=== PATIENT | male | born 1985 | race Caucasian/White ===

== ENCOUNTER 2025-05-22 08:33 | Outpatient (CLI) | payer BC, SELFPAY ==
--- OUTSIDE RECORDS SUMMARY | 2025-05-22 08:47 | XMS_ITS | Clinical Summary ---
Author Organization [facility] [employer] Address [address] [place] [address] Care Team Providers Care Brand Sales Consultant Name Role Phone Unavailable Primary Care Provider Unavailabl e Source Comments [facility] [employer],non-owned Affiliates and Associated Physician Practices is amultiple site organization consisting of ambulatory clinics and hospital sitesin [place], [place], [place] and [place]. This disclosure is being madepursuant to the Care Everywhere program and may not contain all information available regarding this patient. Last updated 18.IM[employer] Allergies No known active allergies Medications * This document contains information received from the source organization and may not represent a complete record from that organization. * Be aware that medications may not be up to date on this document. Alwaysverify current medications with the patient. terbinafine (LAMISIL) 250 MG tablet Take 250 mg by mouth once daily Active FLUoxetine (PROZAC) 20 MG capsuleIndicati ons:Depression Take 1 capsule by mouth once daily Reasons: Depression 30 capsule 2 9 Active nicotine (NICODERM CQ) 21 MG/24HR patchIndication s:Nicotine Dependence Apply 1 patch to skin once daily Remove old patch before applying new patch. Reasons: Nicotine Addiction 30 patch 9 Active Active Problems Problem Noted Date Diagnosed Date Suicide attempt by carbon monoxide poisoning Suicide attempt by drug ingestion 12/15/2018 Major depressive episode 12/14/2018 Social History Tobacco Use Types Packs/Day Years Used Date Smoking Tobacco: Every Day Cigarettes 1 22 Smokeless Tobacco: Never Tobacco Cessation:Ready to Q uit: No; Counseling Given: Yes Alcohol Use Standard Drinks/Week Comments No 0 (1 standard drink = 0.6 oz pur e alcohol) Sex and Gender Information Value Date Recorded Sex Assigned at Not on file Legal Sex Male 1:20 PM CDT Gender Identity Not on file Sexual Orientation Not on file Last Filed Vital Signs Vital Sign Reading Time Taken Comments Blood Pressure 114/77 12/17/2018 7:33 AM CDT Pulse 87 12/17/2018 7:33 AM CDT Temperature 37 C (98.6 F) 12/17/2018 7:33 AM CDT Respiratory Rate 18 12/17/2018 7:33 AM CDT Oxygen Saturation 95% 12/17/2018 7:33 AM CDT Inhaled Oxygen Concentration - - Weight 99.8 kg (220 lb) 12/14/2018 7:05 PM CDT Height 177.8 cm (5' 10) 12/14/2018 7:05 PM CDT Body Mass Index 31.57 12/14/2018 7:05 PM CDT Plan of Treatment Health Maintenance Due Date Last Done Comments LIPID TESTING 1983 HIV SCREENING 1998 HEPATITIS C SCREENING 01/21/2001 DTAP/TDAP/TD VACCINES (1 - Tdap) 2002 HEPATITIS B VACCINE (1 of 3 - 19+ 3-dose series) 2002 PNEUMOCOCCAL VACCINE (1 of 2 - PCV) 2002 HPV VACCINE (1 - 3-dose SCDM series) 2010 DEPRESSION SCREENING 06/27/2024 COVID-19 VACCINE (1 - 2024-2 6 season) 2025 INFLUENZA VACCINE (#1) 2025 ZOSTER VACCINE (1 of 2) 2033 HIB VACCINE Aged Out No longer eligi ble based on patient's age to complete this topic MENINGOCOCCAL (Group B) VACC INE SHARED DECISION-MAKING Aged Out No longer eligibl e based on patient's age to complete this topic MENINGOCOCCAL GROUPS A/C/Y/W VACCINE Aged Out No longer eligible b ased on patient's age to complete this topic Insurance CIG[employer] CIGNA Advance Directives * Full Code (Latest Code Status on File) Date Activated Date Inactivated Comments 12/14/2018 8:25 PM 12/17/2018 2:40 PM
--- NOTE | 2025-05-22 09:15 | NEURO_ITS ---
Impression: # Complains of hand grasp weakness and /hand numbness. ? # Mild left Carpal Tunnel Syndrome and mild left Ulnar Neuropathy. ? # Normal Needle/ EMG exam. Nerve Conduction Studies ?Stim Site NR Peak (ms) P-T Amp (?V) Site1 Site2 Delta-P (ms) Dist (cm) Mathew (m/s) Left Median Anti Sensory (2-3nd Digit) Wrist ? 3.4 31.3 Wrist 2-3nd Digit 3.4 14.0 41 Wrist ? 3.4 35.3 Wrist 2-3nd Digit 3.4 14.0 41 Left Radial Anti Sensory (Base 1st Digit) Wrist ? 2.0 6.6 Wrist Base 1st Digit 2.0 0.0 Left Ulnar Anti Sensory (5th Digit) Wrist ? 2.6 31.6 Wrist 5th Digit 2.6 14.0 54 ?Stim Site NR Onset (ms) O-P Amp (mV) Site1 Site2 Delta-0 (ms) Dist (cm) Mathew (m/s) Left Median Motor (Abd Poll Brev) Wrist ? 3.8 1.8 Elbow Wrist 4.6 29.0 63 Elbow ? 8.4 1.6 Left Ulnar Motor (Abd Dig Minimi) Wrist ? 2.3 10.4 A Elbow Wrist 5.5 32.0 58 A Elbow ? 7.8 8.9 B Elbow Wrist 3.9 23.0 59 B Elbow ? 6.2 8.9 F Wave Studies ?NR F-Lat (ms) L-R F-Lat (ms) Left Median (Mrkrs) (Abd Poll Brev) ? 27.72 Left Ulnar (Mrkrs) (Abd Dig Min) ? 26.41 Electromyography ?Side Muscle Nerve Root Ins Act Fibs Amp Dur Recrt Comment Left 1stDorInt Ulnar C8-T1 Nml Nml Nml Nml Nml Left Ext Indicis Radial (Post Int) C7-8 Nml Nml Nml Nml Nml Left Ext Digitorum Radial (Post Int) C7-8 Nml Nml Nml Nml Nml Left BrachioRad Radial C5-6 Nml Nml Nml Nml Nml Left PronatorTeres Median C6-7 Nml Nml Nml Nml Nml Left Abd Poll Brev Median C8-T1 Nml Nml Nml Nml Nml Left ABD Dig Min Ulnar C8-T1 Nml Nml Nml Nml Nml Left FlexPolLong Median (Ant Int) C7-8 Nml Nml Nml Nml Nml Left Abd Poll Long Radial (Post Int) C7-8 Nml Nml Nml Nml Nml
== END 2025-05-22 08:34 | disposition home or self-care (01) ==
LOC: ANHNEURO 08:36
PROVIDERS: PCP Family Medicine
DX: G56.02 Carpal tunnel syndrome, left upper limb (principal)
CPT/HCPCS: 95886; 95909; 95911